=== PATIENT | female | born 1985 | race Two or more races ===

== ENCOUNTER 2021-03-05 20:57 | Emergency (ER) | payer MEDICAID, OTHER ==
[~2021-03-05] VITALS: Ht 157.5 cm; Wt 77.1 kg
[2021-03-05 21:04] VITALS: BP 132/84
== END 2021-03-05 22:51 | disposition left against medical advice (07) ==
LOC: ER 20:57
DX: F41.9 Anxiety disorder, unspecified (principal); M25.552 Pain in left hip
CPT/HCPCS: 71045